=== PATIENT | female | born 1945 | race Caucasian/White ===

== ENCOUNTER 2020-10-19 11:54 | Emergency (ER) | payer MEDICARE, BC ==
--- NOTE | 2020-10-19 12:15 | ED Physician Documentation ---
PD HPI FOCAL NEURO - Stated complaint Stated Complaint: DISORIENTATION - Chief complaint Chief Complaint: Neuro - History obtained from History obtained from: Patient - Additional information Additional information: 75-year-old woman, Generally healthy with some depression and anxiety and hypothyroidism. No vascular risk factors or history. She was swimming in a wet suit today had been out for about half an hour with some friends. She started to feel confused. Did not know where she was or what was going on. She did not remember that a friend had several years ago. This all started around 10 AM. Feeling better now, just "shaky" There was no associated headache, chest pain, trouble breathing. Review of Systems Ten Systems: 10 systems reviewed and negative Constitutional: reports: Reviewed and negative Eyes: reports: Reviewed and negative Ears: reports: Reviewed and negative Nose: reports: Reviewed and negative Throat: reports: Reviewed and negative Cardiac: reports: Reviewed and negative Respiratory: reports: Reviewed and negative : reports: Dysuria, Frequency PD PAST MEDICAL HISTORY - Present Medications Home Medications: Ambulatory Orders Medication Instructions Recorded Confirmed Nitrofurantoin Monohyd/M-Cryst 100 mg PO BID #10 capsule 10/19/20 [Macrobid 100 mg Capsule] - Allergies Allergies/Adverse Reactions: Allergies Allergy/AdvReac Type Severity Reaction Status Date / Time Penicillins Allergy Rash Verified 10/19/20 11:56 PD ED PE NORMAL - Vitals Vital signs reviewed: Yes - General General: Alert and oriented X 3 (He is alert oriented to person place and time and also remembers her home address her age and what she had for breakfast.), No acute distress - HEENT HEENT: PERRL, EOMI - Neck Neck: Supple, no meningeal sign, No bony TTP - Cardiac Cardiac: RRR, No murmur - Respiratory Respiratory: No respiratory distress, Clear bilaterally - Abdomen Abdomen: Soft, Non tender - Back Back: No CVA TTP, No spinal TTP - Derm Derm: Normal color, Warm and dry - Extremities Extremities: No edema, No calf tenderness / cord - Neuro Neuro: Alert and oriented X 3, No motor deficit, No sensory deficit, Normal speech Eye Opening: Spontaneous Motor: Obeys Commands Verbal: Oriented GCS Score: 15 - Psych Psych: Normal mood, Normal affect NIHSS - Time Time: 12:05 - Level of Consciousness Level of consciousness: (0) Alert, Keenly responsive LOC Questions: (0) Answers both Q's correct LOC Commands: (0) Performs both correctly - Gaze Best Gaze: (0) Normal - Visual Visual: (0) No loss - Facial Palsy Facial Palsy: (0) Normal, symmetrical movement - Motor Arms (both separate) Motor Arm (right): (0) No drift Motor Arm (left): (0) No drift - Motor Legs (both separate) Motor Leg (right): (0) No drift Motor Leg (left): (0) No drift - Limb Ataxia Limb Ataxia: (0) Absent - Sensory Sensory: (0) Normal - Best Language Best Language: (0) No aphasia - Dysarthria Dysarthria: (0) Normal - Extinction and Inattention (formally neg Extinction and inattention: (0) No abnormality - Total Score/Results Total Score/Result: 0 Results - Vitals Vitals: Vital Signs - 24 hr 10/19/20 10/19/20 10/19/20 11:56 12:29 14:22 Temperature 36.9 C 37.1 C Heart Rate 67 69 66 Respiratory 16 17 16 Rate Blood Pressure 165/67 H 154/75 H 132/71 H O2 Saturation 99 99 99 Oxygen O2 Source Room air - EKG (time done) 1223 Rate: Rate (enter#) (80) Rhythm: NSR (with 1 pvc) [place]: Normal Intervals: Normal NM QRS: Normal Ischemia: Q waves (inferior). No: ST elevation c/w ischemia, ST depression Compare to prior EKG: Old EKG unavailable Computer interpretation: Agree with computer - Labs Labs: Laboratory Tests 10/19/20 10/19/20 10/19/20 12:20 12:20 12:30 WBC 10.7 RBC 4.63 Hgb 13.7 Hct 42.1 MCV 90.9 MCH 29.6 MCHC 32.5 RDW 11.8 L Plt Count 233 MPV 10.4 Neut # (Auto) 8.5 H Lymph # (Auto) 1.6 [place] # (Auto) 0.5 Eos # (Auto) 0.0 Baso # (Auto) 0.0 Absolute Nucleated RBC 0.00 Nucleated RBC % 0.0 Sodium 139 Potassium 3.7 Chloride 103 Carbon Dioxide 24 Anion Gap 12.0 BUN 21 H Creatinine 0.8 Estimated GFR (MDRD) 70 L Glucose 144 H POC Whole Bld Glucose 134 H Calcium 9.2 Total Bilirubin 1.0 AST 17 ALT 14 Alkaline Phosphatase 66 Total Protein 7.5 Albumin 4.2 Globulin 3.3 Albumin/Globulin Ratio 1.3 Lipase 42 Urine Color Urine Clarity Urine pH Ur Specific [place] Urine Protein Urine Glucose (UA) Urine Ketones Urine Occult Blood Urine Nitrite Urine Bilirubin Urine Urobilinogen Ur Leukocyte Esterase Urine RBC Urine WBC Ur Squamous Epith Cells Urine Bacteria Ur Microscopic Review Urine Culture Comments 10/19/20 12:45 WBC RBC Hgb Hct MCV MCH MCHC RDW Plt Count MPV Neut # (Auto) Lymph # (Auto) [place] # (Auto) Eos # (Auto) Baso # (Auto) Absolute Nucleated RBC Nucleated RBC % Sodium Potassium Chloride Carbon Dioxide Anion Gap BUN Creatinine Estimated GFR (MDRD) Glucose POC Whole Bld Glucose Calcium Total Bilirubin AST ALT Alkaline Phosphatase Total Protein Albumin Globulin Albumin/Globulin Ratio Lipase Urine Color LT RED Urine Clarity CLEAR Urine pH 6.0 Ur Specific [place] <=1.005 Urine Protein NEGATIVE Urine Glucose (UA) NEGATIVE Urine Ketones NEGATIVE Urine Occult Blood LARGE H Urine Nitrite NEGATIVE Urine Bilirubin NEGATIVE Urine Urobilinogen 0.2 (NORMAL) Ur Leukocyte Esterase TRACE H Urine RBC 6-10 H Urine WBC 0-3 Ur Squamous Epith Cells RARE Squamous Urine Bacteria None Seen Ur Microscopic Review INDICATED Urine Culture Comments INDICATED - Rads (name of study) CTA Head/neck Radiology: EMP read contemporaneously (normal) PD MEDICAL DECISION MAKING - ED course ED course: 75-year-old woman presents with a almost completely resolved episode of what sounds like transient global amnesia. Her examination is normal. Nothing to really suggest stroke in the history or physical. Will obtain angiography of the head and neck basic labs and EKG. Will consider overnight observation. He also had some dysuria frequency and small night hematuria. Urinalysis positive for cystitis and this will be treated for Macrobid. She declined an observation stay in the hospital. She remained asymptomatic in the department. Departure - Departure Disposition: 01 Home, Self Care Clinical Impression: Cystitis, Transient global amnesia Condition: Good Record reviewed to determine appropriate education?: Yes Instructions: ED UTI Cystitis Female Follow-Up: Shannon Hazel [employer] [facility] [Primary Care Provider] - Prescriptions: Nitrofurantoin Monohyd/M-Cryst [Macrobid 100 mg Capsule] 100 mg PO BID #10 capsule Comments: Today it sounds you had an episode of transient global amnesia and uncommon but not rare phenomenon. It is generally not considered a risk factor for stroke or any other permanent disability. Return if it recurs. I would recommend you do not drive today. Follow-up with your primary care physician. You also were found to have a urinary tract infection/bladder infection. We will culture your urine, the results should be done in 48-72 hours. If an antibiotic change is necessary we will call you. Return if worse in the meantime, especially if you develop increasing flank pain, fevers, or cannot keep down the medication. Discharge Date/Time: 10/19/20 14:35
[2020-10-19 12:30] LABS: BASOPHILS % (AUTO) 0.3 %; EOSINOPHILS % (AUTO) 0.4 %; HGB - HEMOGLOBIN 13.7 g/dL (12.0-16.0); LYMPHOCYTES # (AUTO) 1.6 10^3/uL (1.5-3.5); LYMPHOCYTES % (AUTO) 14.9 %; MEAN CORPUSCULAR HEMOGLOBIN 29.6 pg (27.0-31.0); MEAN CORPUSCULAR HGB CONC 32.5 g/dL (32.0-36.0); MEAN CORPUSCULAR VOLUME 90.9 fL (81.0-99.0); MEAN PLATELET VOLUME 10.4 fL (7.9-10.8); MONOCYTES # (AUTO) 0.5 10^3/uL (0.0-1.0); MONOCYTES % (AUTO) 4.3 %; NEUTROPHILS # (AUTO) 8.5 10^3/uL (1.5-6.6); NEUTROPHILS % (AUTO) 79.8 %; PLT - PLATELET COUNT 233 10^3/uL (130-450); RED BLOOD COUNT 4.63 10^6/uL (4.20-5.40); RED CELL DISTRIBUTION WIDTH 11.8 % (12.0-15.0); WHITE BLOOD COUNT 10.7 x10^3/uL (4.8-10.8)
[2020-10-19 12:43] LABS: ALBUMIN 4.2 g/dL (3.2-5.5); ALBUMIN/GLOBULIN RATIO 1.3 (1.0-2.2); CALCIUM 9.2 mg/dL (8.5-10.3); CREATININE 0.8 mg/dL (0.4-1.0); TOTAL PROTEIN 7.5 g/dL (6.7-8.2)
[2020-10-19] MEDS ORDERED: IOVERSOL 320 100 ML VIAL IVP ONE ×2 (13:18→19:21)
--- NOTE | 2020-10-19 13:56 | CT Report ---
PROCEDURE: ANGIO HEAD W/WO INDICATIONS: disoriented CONTRAST: IV CONTRAST: Optiray 320 ml: 80 PO CONTRAST: *NO PO CONTRAST TECHNIQUE: Precontrast angled axial sections acquired from the foramen magnum to the vertex. After the adminis tration of intravenous contrast, 1 mm thick sections acquired through the [place] of [place]. Postcont rast 4.5 mm thick sections then re-acquired from the foramen magnum to the vertex. 3-dimensional max qokn-crbvkcxzz-oasmhyykei (MIP) and/or volume rendering reformats were acquired of the central intrac ranial vasculature. For radiation dose reduction, the following was used: automated exposure contro l, adjustment of mA and/or kV according to patient size. COMPARISON: None. FINDINGS: Image quality: Excellent. Anterior circulation: Intracranial internal carotid arteries are normal in size and flow. The flow within the paired anterior cerebral arteries is normal and symmetric. The flow within the middle cer ebral arteries is normal and symmetric. The anterior communicating artery is seen. Posterior communi cating arteries are hypoplastic or absent. No aneurysms are seen. Posterior circulation: Visualized portions of the vertebral arteries demonstrate normal caliber, and join to form a normal appearing basilar artery. Flow within the posterior cerebral arteries is norm al and symmetric. No aneurysms are seen. CSF spaces: Ventricles are within normal limits in size and shape. Basal cisterns are patent. No e xtra-axial fluid collections. Brain: No midline shift. No intracranial bleeds or masses. Barton-white matter interface appears int act. Skull and face: Calvarium and facial bones appear intact, without suspicious lesions. A small exosto sis at the left frontal calvarium. Sinuses: Visualized sinuses and mastoids are clear. IMPRESSION: 1. No acute intracranial hemorrhage. No acute infarct identified. 2. No large vessel occlusion. Reviewed by: Yemi Sifuentes MD on 10/19/2020 12:55 PM [facility] Approved by: Yemi Sifuentes MD on 10/19/2020 12:55 PM [facility] Station ID: [id number]
[2020-10-19 14:01] LABS: BILIRUBIN,URINE NEGATIVE (NEGATIVE); GLUCOSE, URINE (UA) NEGATIVE (NEGATIVE); KETONES,URINE (UA) NEGATIVE (NEGATIVE); LEUKOCYTE ESTERASE, URINE TRACE (NEGATIVE); NITRITE,URINE NEGATIVE (NEGATIVE); OCCULT BLOOD,URINE LARGE (NEGATIVE); PROTEIN,URINE NEGATIVE (NEGATIVE); UROBILINOGEN,URINE 0.2 (NORMAL) E.U./dL (NORMAL)
[2020-10-19 14:02] LABS: CLARITY,URINE CLEAR (CLEAR)
--- NOTE | 2020-10-19 14:02 | CT Report ---
PROCEDURE: ANGIO NECK W INDICATIONS: disoriented CONTRAST: IV CONTRAST: Optiray 320 ml: 80 PO CONTRAST: *NO PO CONTRAST TECHNIQUE: After the administration of intravenous contrast, 1.5 mm axial sections acquired from the aortic arch to the [place] of [place]. Coronal 3-D maximum intensity projection (MIP) and/or volume rendering ref ormats were then performed. For radiation dose reduction, the following was used: automated exposur e control, adjustment of mA and/or kV according to patient size. COMPARISON: Same day noncontrast head CT and CTA head. FINDINGS: Image quality: Excellent. Carotid system: The great vessels demonstrate a conventional anatomy as they arise from the aortic a rch. The origins of the common carotid arteries appear patent. The common carotid arteries demonstr ate normal calibers and courses. The bifurcation regions appear normal bilaterally. The internal ca rotid arteries demonstrate normal caliber and course. Less than 50% stenosis in the bilateral ICA. Mi ld calcified atherosclerotic plaque at the right carotid bulb. No ICA dissection. Posterior circulation: The origins of the vertebral arteries appear patent. Vertebral arteries are c odominant. The more superior portions of the vertebral arteries demonstrate normal course and caliber . They join to form a normal appearing basilar artery. Soft tissues: Visualized neck soft tissues demonstrate no suspicious abnormalities. Probable subcen timeter left thyroid nodule. Bones: Heterogeneous appearance of the bones at the cervical thoracic junction. Mild degenerative heather nge in the cervical spine. Visualized cervical spine appears normally aligned. IMPRESSION: 1. No large vessel occlusion. No dissection. 2. Less than 50% stenosis in the bilateral ICA. Mild plaque at the right carotid bulb. The estimate of stenosis included in the report of the imaging study was calculated using the NASCET method Reviewed by: Yemi Sifuentes MD on 10/19/2020 1:01 PM [facility] Approved by: Yemi Sifuentes MD on 10/19/2020 1:01 PM [facility] Station ID: [id number]
[2020-10-19 14:07] LABS: SQUAMOUS EPITHELIAL CELL,UR RARE Squamous (<= Few)
[2020-10-19 14:08] LABS: BACTERIA,URINE None Seen /HPF (None Seen)
[2020-10-19 14:27] VITALS: BP 132/71
== END 2020-10-19 14:35 | disposition home or self-care (01) ==
LOC: ED 11:54
DX: G45.4 Transient global amnesia (principal); N30.91 Cystitis, unspecified with hematuria; I49.3 Ventricular premature depolarization; F32.9 Major depressive disorder, single episode, unspecified; F41.9 Anxiety disorder, unspecified; E03.9 Hypothyroidism, unspecified
CPT/HCPCS: 36415; 70496; 70498; 80053; 81001; 83690; 85025; 87086; 93005; 99284; Q9967; 81003

== ENCOUNTER 2021-01-22 07:13 | Outpatient (CLI) | payer MEDICARE, BC ==
[2021-01-22 15:09] LABS: BILIRUBIN,URINE NEGATIVE (NEGATIVE); GLUCOSE, URINE (UA) NEGATIVE (NEGATIVE); KETONES,URINE (UA) NEGATIVE (NEGATIVE); LEUKOCYTE ESTERASE, URINE TRACE (NEGATIVE); NITRITE,URINE NEGATIVE (NEGATIVE); OCCULT BLOOD,URINE NEGATIVE (NEGATIVE); PH,URINE 5.5 PH (5.0-7.5); PROTEIN,URINE NEGATIVE (NEGATIVE); UROBILINOGEN,URINE 0.2 (NORMAL) E.U./dL (NORMAL)
[2021-01-22 15:14] LABS: CLARITY,URINE CLEAR (CLEAR)
[2021-01-22 15:33] LABS: BACTERIA,URINE None Seen /HPF (None Seen); CHOL/HDL RATIO 4.5 (<4.4); CHOLESTEROL 199 mg/dL; HDL CHOLESTEROL 44 mg/dL; LDL CHOLESTEROL,CALCULATED 124 mg/dL; LDL/HDL RATIO 2.8 (<4.4); RBC,URINE None Seen /HPF (0-5); SQUAMOUS EPITHELIAL CELL,UR RARE Squamous (<= Few); TRIGLYCERIDES 153 mg/dL; VLDL CHOLESTEROL 31 mg/dL
== END 2021-01-22 07:14 | disposition home or self-care (01) ==
LOC: LAB.S 07:13
PROVIDERS: ATTEND Registered Nurse
DX: R31.0 Gross hematuria (principal); I65.29 Occlusion and stenosis of unspecified carotid artery
CPT/HCPCS: 36415; 80061; 81001; 83721; 87086

== ENCOUNTER 2021-06-01 09:46 | Outpatient (CLI) | payer MEDICARE, BC ==
[2021-06-01 10:34] LABS: CREATININE 0.8 mg/dL (0.4-1.0)
[2021-06-01] MEDS ORDERED: IOPAMIDOL-300 100 ML VIAL ONE (10:56)
[2021-06-01] MEDS ORDERED: IOPAMIDOL-300 100 ML VIAL IVP ONE (13:14)
--- NOTE | 2021-06-01 13:47 | CT Report ---
PROCEDURE: IVP INDICATIONS: HEMATURIA CONTRAST: IV CONTRAST: Isovue 300 ml: 140 PO CONTRAST: *NO PO CONTRAST TECHNIQUE: After the administration of intravenous contrast, 5 mm thick sections acquired from the diaphragms to the symphysis. 5 mm thick coronal and sagittal reformats were acquired. For radiation dose reducti on, the following was used: automated exposure control, adjustment of mA and/or kV according to santosh ent size. COMPARISON: None. FINDINGS: Image quality: Excellent. Lung bases: Lung bases are clear. Heart size is normal. Urinary system: Both kidneys are normal in size and enhancement. Contrast-filled renal calyces are normal in morphology. Incidental note made of the presence of left renal peripelvic cysts. This caus es splaying of the middle pole and lower pole calyces. Contrast filled portions of both ureters are n ormal in caliber. Bladder wall thickness is normal. Solid organs: Liver and spleen are normal in size and enhancement. Gallbladder is somewhat distende d. There is a question of a fairly large noncalcified gallstone in the gallbladder. No gallbladder wa ll thickening. Biliary system is non dilated. Pancreas enhances normally. No adrenal nodules. Peritoneum and bowel: Bowel loops demonstrate normal wall thickness and caliber. No free fluid or a ir. Nodes and vessels: No retroperitoneal or mesenteric adenopathy by size criteria. Aorta and inferior vena cava are normal in size. Abdominal wall: No ventral hernias. Pelvis: No pathologic free pelvic fluid. No inguinal hernias or adenopathy. There is a 3 cm cystic lesion of the right adnexa. Bones: No suspicious bony lesions. No vertebral body compression fractures. IMPRESSION: 1. No evidence of renal stones, ureteral stones, hydronephrosis, or findings suspicious for malign merissa. 2. Question noncalcified fairly sizable gallstone in the gallbladder. If this patient has symptoms of biliary colic, a right upper quadrant limited abdominal ultrasound may be helpful. 3. 3 cm cystic lesion of the right adnexa. Differential diagnosis includes benign and malignant etiol ogies. Recommend follow-up ultrasound in 12 months to document stability or increase in size. Reviewed by: Jarvis Ortiz MD on 06/01/2021 1:46 PM PDT Approved by: Jarvis Ortiz MD on 06/01/2021 1:46 PM PDT Station ID: [id number]
== END 2021-06-01 09:47 | disposition home or self-care (01) ==
LOC: LAB 09:46
PROVIDERS: ATTEND Urology
DX: Z87.448 Personal history of other diseases of urinary system (principal); R93.3 Abnormal findings on diagnostic imaging of other parts of digestive tract; R93.89 Abnormal findings on diagnostic imaging of other specified body structures
CPT/HCPCS: 36415; 74178; 82565; 84520; Q9967

== ENCOUNTER 2022-04-13 07:06 | Outpatient (CLI) | payer MEDICARE, BC ==
[2022-04-13 14:12] LABS: BASOPHILS % (AUTO) 0.5 %; EOSINOPHILS # (AUTO) 0.1 10^3/uL (0.0-0.7); EOSINOPHILS % (AUTO) 1.7 %; HCT - HEMATOCRIT 43.7 % (37.0-47.0); HGB - HEMOGLOBIN 13.3 g/dL (12.0-16.0); LYMPHOCYTES # (AUTO) 2.1 10^3/uL (1.5-3.5); LYMPHOCYTES % (AUTO) 26.2 %; MEAN CORPUSCULAR HEMOGLOBIN 29.3 pg (27.0-31.0); MEAN CORPUSCULAR HGB CONC 30.4 g/dL (32.0-36.0); MEAN CORPUSCULAR VOLUME 96.3 fL (81.0-99.0); MEAN PLATELET VOLUME 11.7 fL (7.9-10.8); MONOCYTES # (AUTO) 0.6 10^3/uL (0.0-1.0); NEUTROPHILS # (AUTO) 5.1 10^3/uL (1.5-6.6); NEUTROPHILS % (AUTO) 63.5 %; PLT - PLATELET COUNT 226 10^3/uL (130-450); RED BLOOD COUNT 4.54 10^6/uL (4.20-5.40); RED CELL DISTRIBUTION WIDTH 12.5 % (12.0-15.0)
[2022-04-13 14:29] LABS: ALBUMIN 3.8 g/dL (3.2-5.5); ALBUMIN/GLOBULIN RATIO 1.2 (1.0-2.2); ALKALINE PHOSPHATASE 63 IU/L (42-121); ALT ALANINE AMINOTRANSFERASE 25 IU/L (10-60); AST ASPARTATE AMINOTRANSFERASE 22 IU/L (10-42); BILIRUBIN,TOTAL 0.8 mg/dL (0.2-1.0); BUN - BLOOD UREA NITROGEN 27 mg/dL (6-20); CALCIUM 9.1 mg/dL (8.5-10.3); CARBON DIOXIDE - CO2 30 mmol/L (21-32); CHLORIDE 104 mmol/L (101-111); CHOL/HDL RATIO 4.3 (<4.4); CHOLESTEROL 195 mg/dL; CREATININE 0.9 mg/dL (0.4-1.0); GFR - MDRD 61 (>89); GLUCOSE 103 mg/dL (70-100); HDL CHOLESTEROL 45 mg/dL; LDL CHOLESTEROL,CALCULATED 129 mg/dL; LDL/HDL RATIO 2.9 (<4.4); POTASSIUM 4.2 mmol/L (3.5-5.0); SODIUM 143 mmol/L (135-145); TRIGLYCERIDES 106 mg/dL; VLDL CHOLESTEROL 21 mg/dL
[2022-04-13 14:36] LABS: THYROID STIMULATING HORMONE 17.04 uIU/mL (0.34-5.60)
[2022-04-13 14:38] LABS: FREE T3 2.97 pg/mL (2.5-3.9)
[2022-04-13 14:39] LABS: FREE T4 (FREE THYROXINE) 0.53 ng/dL (0.58-1.64)
== END 2022-04-13 07:07 | disposition home or self-care (01) ==
LOC: LAB.S 07:06
PROVIDERS: ATTEND Registered Nurse
DX: I65.29 Occlusion and stenosis of unspecified carotid artery (principal); E03.9 Hypothyroidism, unspecified
CPT/HCPCS: 36415; 80053; 80061; 83721; 84439; 84443; 84481; 85025

== ENCOUNTER 2022-04-16 08:31 | Outpatient (CLI) | payer MEDICARE, BC ==
--- NOTE | 2022-04-16 13:19 | Ultrasound Report ---
PROCEDURE: Carotid Doppler Complete INDICATIONS: CAROTID ARTERY STENOSIS TECHNIQUE: Color and pulse Doppler interrogation was performed of both carotid systems, with image documentation and velocity measurements. COMPARISON: None. FINDINGS: CT neck angiogram, 10/19/2020. Right side: Brachial blood pressure: 145/65 mm Hg. Common carotid artery peak systolic velocity: 60.9 cm/sec. Internal carotid artery peak systolic velocity: 111.3 cm/sec. Internal carotid artery end diastolic velocity: 51.1 cm/sec. External carotid artery peak systolic velocity: 65.5 cm/sec. ICA/CCA peak systolic ratio: 1.8 . Barton scale imaging description: mild plaquing. Percent internal carotid artery stenosis: Less than 50%. Vertebral artery: Flow direction is antegrade. Left side: Brachial blood pressure: 154/65 mm Hg. Common carotid artery peak systolic velocity: 53.7 cm/sec. Internal carotid artery peak systolic velocity: 98.8 cm/sec. Internal carotid artery end diastolic velocity: 32.8 cm/sec. External carotid artery peak systolic velocity: 65.5 cm/sec. ICA/CCA peak systolic ratio: 1.8 . Barton scale imaging description: Minimal plaquing Percent internal carotid artery stenosis: Less than 50%. Vertebral artery: Flow direction is antegrade. IMPRESSION: Less than 50% internal carotid artery stenosis bilaterally. The estimate of stenosis included in the report of the imaging study was calculated using the NASCET method Reviewed by: Edilma Munoz MD on 04/16/2022 1:18 PM PDT Approved by: Edilma Munoz MD on 04/16/2022 1:18 PM PDT Station ID: [id number]
== END 2022-04-16 08:32 | disposition home or self-care (01) ==
LOC: DI 08:31
PROVIDERS: ATTEND Registered Nurse
DX: I65.23 Occlusion and stenosis of bilateral carotid arteries (principal)
CPT/HCPCS: 93880

== ENCOUNTER 2022-12-01 18:57 | Outpatient (CLI) | payer MEDICARE, BC ==
--- NOTE | 2022-12-02 11:32 | Ultrasound Report ---
PROCEDURE: Pelvic w/Transvaginal INDICATIONS: CYST OF UTERINE ADNEXA TECHNIQUE: Real-time scanning was performed of the pelvic organs, with image documentation. Additional endovagi nal scanning was necessary due to incomplete visualization of the adnexal and endometrial structures by transabdominal scanning. COMPARISON: CT IVP 06/01/2021 FINDINGS: Uterus: Uterus is anteverted and unremarkable in size for age measuring 5.7 x 2.0 x 3.3 cm. The bala metrium is homogeneous. The endometrium measures 2 mm in combined thickness. Ovaries: The right ovary measures 2.9 x 2.7 x 2.9 cm, with a calculated ovarian volume of 12 cc. Red emonstrated right ovarian cyst measuring 2.4 x 1.9 x 2.1 cm. Internally the cyst appears anechoic. A few small calcifications likely present along the periphery of the cyst. On the prior CT the cyst emmanuel sured about 2.7 cm. The left ovary measures 1.3 x 0.6 x 1.1 cm, with a calculated ovarian volume of 1 cc. Other: No pathologic free abdominal or pelvic fluid. IMPRESSION: Redemonstrated right ovarian cyst, likely not substantially changed since the prior CT allowing for d ifferences in modality. Persistence of the finding raises the possibility of etiologies such as serou s cystoadenoma, other etiologies not excluded. Imaging follow-up can be obtained as clinically indica max. Reviewed by: Po Sidhu MD on 12/02/2022 11:30 AM PST Approved by: Po Sidhu MD on 12/02/2022 11:30 AM PST Station ID: [id number]
== END 2022-12-01 18:58 | disposition home or self-care (01) ==
LOC: DI 18:57
PROVIDERS: ATTEND Registered Nurse
DX: N83.201 Unspecified ovarian cyst, right side (principal)